=== PATIENT | female | born 1985 | race Caucasian/White ===

== ENCOUNTER 2016-09-17 06:28 | Inpatient (IN) ==
--- NOTE | 2016-09-17 07:40 | History and Physical Update ---
History and Physical Update - History and Physical H&P was reviewed, the patient examined and there: are no changes in the patients condition since last H&P was completed. - Dictation Physical: refer to scanned H&P - Physical Exam Mental Status: alert and oriented Heart: regular rate and rhythm Lung: clear to auscultation Abdomen: within normal limits Vitals: within normal limits History and Physical Changes: 39 wks Para 1. No complications.
[2016-09-17] MEDS ORDERED: LACTATED RINGERS 500 ML IV PRN (08:01)
[2016-09-17] MEDS ORDERED: CITRIC ACID/SODIUM CITRATE 30 ML UDCUP PO ONE (08:01)
[2016-09-17] MEDS ORDERED: PROMETHAZINE 25 MG/1 ML VIAL IM ONE (08:01)
[2016-09-17] MEDS ORDERED: FAMOTIDINE 20 MG/2 ML VIAL IV ONE (08:01)
[2016-09-17] MEDS ORDERED: fentaNYL 2 MCG/ROPIV 0.2% EPID 150 ML EPIDURAL SCH (08:01)
[2016-09-17] MEDS ORDERED: ONDANSETRON 4 MG/2 ML VIAL IV PRN ×2 (08:01→15:55)
[2016-09-17] MEDS ORDERED: hydrOXYzine HCL 25 MG/1 ML VIAL IM PRN (08:01)
[2016-09-17] MEDS ORDERED: ONDANSETRON 4 MG/2 ML VIAL IV ONE (08:01)
[2016-09-17] MEDS ORDERED: LACTATED RINGERS 1,000 ML IV ONE (08:01)
[2016-09-17] MEDS ORDERED: ePHEDrine 50 MG/ML AMP IV PRN (08:01)
[2016-09-17] MEDS ORDERED: OXYTOCIN/LR 20 UNIT/1,000 ML BAG IV SCH (08:30)
[2016-09-17] MEDS ORDERED: LACTATED RINGERS 1,000 ML IV SCH ×2 (08:30)
[2016-09-17 08:33] LABS: Basophils % 0.3 % (0.0-0.8); Eosinophils # 0.1 10*3/uL (0.0-0.87); Eosinophils % 0.7 % (0.00-10.9); Hematocrit 34.2 VOL% (35.7-47.0); Hemoglobin 11.9 GM/DL (12.0-16.0); Immature Granulocytes % 1.5 %; Immature Granulocytes Absolute 0.17 #; Lymphocytes # 2.1 10*3/uL (1.4-4.0); Mean Corpuscular HGB Conc 34.8 GM/DL (32-36); Mean Corpuscular Hemoglobin 31 PG (27-34); Mean Corpuscular Volume 89.5 FL (87-102); Mean Platelet Volume 10.7 FL (9.6-12.0); Monocytes # 0.9 10*3/uL (0.11-0.8); Monocytes % 8.1 % (1.7-12.7); Neutrophils # 7.9 10*3/uL (1.4-7.4); Neutrophils % 70.4 % (38.7-73.9); Platelet Count 238 T/CUMM (130-400); Red Blood Count 3.82 MC/CUMM (3.8-5.5); Red Cell Distribution Width 13.9 % (9.3-17.3); White Blood Count 11.2 T/CUMM (4-12)
[2016-09-17 08:48] LABS: PT Patient Result 10.7 SECS; Partial Thromboplastin Time 27.3 SECS (0-40)
[2016-09-17] MEDS ORDERED: miSOPROStol 200 MCG TABLET ONE (08:49)
[2016-09-17 09:21] LABS: Alanine Aminotransferase 20 U/L (13-56); Albumin 2.6 G/DL (3.4-5.0); Alkaline Phosphatase 186 U/L (45-117); Aspartate Amino Transferase 16 U/L (0-37); Bilirubin,Total < 0.39 MG/DL (0.2-1.0); Blood Urea Nitrogen 7 MG/DL (7-18); Calcium 8.6 MG/DL (8.5-10.1); Glucose 76 MG/DL (74-106); Osmolality,Calculated 275.4 MOS/KG (273-304); Sodium 140 MMOL/L (136-145); Total Protein 5.5 G/DL (6.4-8.3)
[2016-09-17 10:32] LABS: Apearance,Urine CLEAR (Clear); Bilirubin,Urine Negative (Negative); Blood, Urine Negative (Negative); Glucose,Urine (UA) Negative (Negative); Ketones,Urine Negative (Negative); Nitrite,Urine Negative (Negative); Protein,Urine Negative; RBC,Urine <1 /HPF (0-4); Urine Color Colorless (Yellow); Urine Specific Gravity 1.003 (1.001-1.035); Urine Urobilinogen < 2.0 EU/DL (0.2-1.0)
[2016-09-17] MEDS: diphenhydrAMINE 50 MG/1 ML VIAL IV PRN ×2 (11:56→15:51)
[2016-09-17] MEDS ORDERED: OXYTOCIN/LR 20 UNIT/1,000 ML BAG IV ONE (15:55)
[2016-09-17] MEDS ORDERED: LANOLIN 50% CREAM 0.3 OZ TUBE TOP PRN (15:55)
[2016-09-17] MEDS ORDERED: ACETAMINOPHEN 325 MG TABLET PO PRN (15:55)
[2016-09-17] MEDS ORDERED: DIPH/TET/ACEL PERT BOOSTER VACCINE 0.5 ML VIAL IM ONE (15:55)
[2016-09-17] MEDS ORDERED: HYDROCORTISONE 2.5% RECTAL CREAM 30 GM TUBE TOP PRN (15:55)
[2016-09-17] MEDS ORDERED: RHO(D) IMMUNE GLOBULIN 300 MCG SYRINGE IM ONE (15:55)
[2016-09-17] MEDS ORDERED: oxyCODONE/ACETAMINOPHEN 5-325 MG TABLET PO PRN (15:55)
[2016-09-17] MEDS ORDERED: BENZOCAINE 20%/MENTHOL 0.5% SPRAY 56 GM CAN TOP PRN (15:55)
[2016-09-17] MEDS ORDERED: WITCH HAZEL PADS 100/JAR TOP PRN (15:55)
[2016-09-17] MEDS ORDERED: MEASLES/MUMPS/RUBELLA VACCINE 0.5 ML VIAL SUBCUT ONE (15:55)
[2016-09-17] MEDS ORDERED: BISACODYL 10 MG SUPP RECTAL PRN (15:55)
[2016-09-17] MEDS: IBUPROFEN 800 MG TABLET PO PRN ×2 (16:49→22:56)
[2016-09-17] MEDS: oxyCODONE/ACETAMINOPHEN 5-325 MG TABLET PO PRN ×2 (16:52→22:56)
[2016-09-17] MEDS: DOCUSATE SODIUM 100 MG CAPSULE PO SCH (21:30)
[2016-09-18] MEDS: IBUPROFEN 800 MG TABLET PO PRN ×3 (06:13→21:11)
[2016-09-18] MEDS: oxyCODONE/ACETAMINOPHEN 5-325 MG TABLET PO PRN ×2 (06:14→21:13)
[2016-09-18 06:38] LABS: Basophils # 0.1 10*3/uL (0.0-0.2); Basophils % 0.3 % (0.0-0.8); Eosinophils # 0.1 10*3/uL (0.0-0.87); Hematocrit 35.7 VOL% (35.7-47.0); Hemoglobin 11.9 GM/DL (12.0-16.0); Immature Granulocytes % 0.9 %; Immature Granulocytes Absolute 0.13 #; Lymphocytes # 3.2 10*3/uL (1.4-4.0); Lymphocytes % 22.1 % (21.3-54.2); Mean Corpuscular HGB Conc 33.3 GM/DL (32-36); Mean Corpuscular Hemoglobin 30 PG (27-34); Mean Corpuscular Volume 90.8 FL (87-102); Mean Platelet Volume 10.9 FL (9.6-12.0); Monocytes # 1.1 10*3/uL (0.11-0.8); Monocytes % 7.6 % (1.7-12.7); Neutrophils # 9.7 10*3/uL (1.4-7.4); Neutrophils % 68.1 % (38.7-73.9); Platelet Count 223 T/CUMM (130-400); Red Blood Count 3.93 MC/CUMM (3.8-5.5); White Blood Count 14.3 T/CUMM (4-12)
[2016-09-18] MEDS: DOCUSATE SODIUM 100 MG CAPSULE PO SCH ×2 (08:25→21:11)
--- NOTE | 2016-09-18 13:21 | Anesthesia Post-Op ---
Anesthesia Post OP - Post Ansesthetic Evaluation Patient seen in post op: Yes Resp: within normal limits CV: within normal limits Mental: within normal limits Temp: within normal limits [id number]: within normal limits Nausea and Vomiting: within normal limits Pain: within normal limits
[2016-09-19] MEDS: IBUPROFEN 800 MG TABLET PO PRN (04:53)
[2016-09-19 07:22] VITALS: BP 114/68
--- NOTE | 2016-09-19 08:43 | Operative Note ---
Date of procedure: 09/17/16 Pre-op diagnosis: 39 weeks for induction Post-op diagnosis: same Procedure: Delivery note. Patient progressed to complete and pushing with labor epidural and Pitocin augmentation and delivered a viable female over 2nd degree MLE. Baby was bulb suctioned on the perineum. Cord was doubly clamped and cut. Cord blood was collected and placenta was delivered intact. MLE was repaired with 2-0 and 3-0 chromic. Fundus is firm. Estimated blood loss 300 mL. Complications none. Patient is stable and the baby is stable. Anesthesia: epidural Surgeon / Physician: Alida Cool Estimated blood loss: other (300cc) Specimens: other (placenta to path; cord blood to lab) Condition: stable Disposition: no change Results - Labs CBC & BMP: 09/18/16 06:18 09/17/16 08:27 Discharge Plan - Discharge Medications No Action Pnv No.95/Ferrous Fum/Folic AC [ Tablet] 1 each PO DAILY Omeprazole Magnesium [Prilosec Otc] 20 mg PO DAILY - Follow Up or Referral - Forms/Instructions Instructions: Perineal Care (DC), Vaginal Delivery (DC), Bleeding (DC)
--- NOTE | 2016-09-19 08:45 | OB/GYN Progress Note ---
Assessment and Plan (1) Vaginal delivery Status: Acute Assessment and plan: Routine care Current Visit: Yes DIRECTOR OF USER EXPERIENCE - PN: Subj Interval history: 09/18/16: PPD#1 Doing well without complaints. Exam DIRECTOR OF USER EXPERIENCE - Constitutional Vitals: Vital Signs Temp Pulse Resp BP Pulse Ox 09/19/16 07:21 97.9 F 57 L 18 114/68 100 09/19/16 04:00 18 09/19/16 02:00 18 09/19/16 00:00 98.0 F 86 18 107/68 98 09/18/16 20:00 97.7 F 65 20 111/73 98 09/18/16 15:19 97 F L 66 20 115/75 98 09/18/16 11:24 97.8 F 74 20 105/62 98 General appearance: normal weight, no acute distress - Head Head exam: Present: normal inspection, normocephalic - Eye Eye exam: Present: EOMI - Respiratory Respiratory exam: Present: clear to auscultation bilaterally - Cardiovascular Cardiovascular exam: Present: regular rate and rhythm - GI/Abdominal GI/Abdominal exam: Present: soft - Neurological Exam Neurological exam: Present: alert, oriented X3 - Psychiatric Psychiatric exam: Present: normal affect, normal mood - Skin Skin exam: Present: normal color, warm Results - Labs CBC & BMP: 09/18/16 06:18 09/17/16 08:27 Lab Results: I have reviewed the past 24 hour labs
--- NOTE | 2016-09-19 08:48 | Discharge Summary ---
Hospital Course - Hospital Course Hospital Course: Pt admitted for induction. She delivered without complication. Her course has been unremarkable. Diagnosis - Discharge Diagnosis (1) Vaginal delivery Status: Acute Specialty Discharge - Follow Up or Referrals Discharge Plan - Discharge Data Disposition: Disch To Home/Self Care Condition at Discharge: Stable Discharge Diet: regular diet Activity: other (pelvic rest x 6 wks) Hygiene: may shower Weight Bearing at Discharge: full weight bearing Driving: not for (1 week) Contact your physician if you experience:: fever over 101, Difficulty voiding, Redness or swelling, Nausea/Vomiting, Shortness of breath, Bleeding, pain uncontrolled by pain medications - Discharge Medications New Ibuprofen Tab [Motrin Tab] 800 mg PO Q6H PRN #30 tablet PRN Reason: Pain Moderate (4-7) oxyCODONE/ACETAMINOPHEN 5-325 [Percocet 5-325] 1 tablet PO Q6H PRN #20 tablet PRN Reason: Pain Severe (8-10) No Action Pnv No.95/Ferrous Fum/Folic AC [ Tablet] 1 each PO DAILY Omeprazole Magnesium [Prilosec Otc] 20 mg PO DAILY - Follow Up or Referral Follow Up: Alida Cool DO [Physician] - (6 wks) - Forms/Instructions Instructions: Perineal Care (DC), Vaginal Delivery (DC), Bleeding (DC) Exam - Constitutional Vitals: Period Temp Pulse Resp BP Sys/Navarrete Pulse Ox Last 24 Hr 97 F-98.0 F 57-86 18-20 105-115/62-75 98-100 General appearance: normal weight, no acute distress - Head Head exam: Present: normal inspection, normocephalic - Eye Eye exam: Present: EOMI - Respiratory Respiratory exam: Present: clear to auscultation bilaterally - Cardiovascular Cardiovascular exam: Present: regular rate and rhythm - GI/Abdominal GI/Abdominal exam: Present: soft (fundus firm, nontender) - Extremities Exam Extremities exam: Present: normal inspection - Neurological Exam Neurological exam: Present: alert, oriented X3 - Psychiatric Psychiatric exam: Present: normal affect, normal mood - Skin Skin exam: Present: normal color, warm DS: Provider Date of admission: 09/17/16 08:01 Primary care physician: . No PCP Attending physician on admission: Alida Cool DO Consults: 09/17/16 08:01 Consult to Anesthesiology [CONS] Routine Consulting Provider: Reason for Anesthesiology: Epidural Consult Comment: Epidural for pain managment 09/17/16 15:56 Consult to Labelling Machine Operator [CONS] Routine Consult Labelling Machine Operator: Breast Feeding Discharging clinician: Alida Cool DO Expected date of discharge: 09/19/16
[2016-09-19] MEDS: DOCUSATE SODIUM 100 MG CAPSULE PO SCH (09:00)
--- NOTE | 2016-09-19 12:20 | Pathology Report from [facility] ---
[facility] ACCESSION # : [id number] PATIENT NAME : Alida Harding ORDERING DR : ALIDA AGUILAR DO CLINICAL HX: IUPC @ 39 wks 2 days POST-OP DX: Same SPECIMEN INFO: Intact placenta GROSS DESCRIPTION: Received fresh labeled ALIDA HARDING & PLACENTA is a 426 gm placenta measuring 19.0 x 16.5 x 2.3 cm. The membranes are pink gibbons and translucent. The umbilical cord measures 23.0 cm, contains three vessels and is centrally inserted. The surface is blue otero and intact. The maternal surface displays intact cotyledons with no abnormalities appreciated upon sectioning. Sections submitted A- membranes and cord, B- and maternal surfaces. DIAGNOSIS FOR ALIDA HARDING: PLACENTA, MEMBRANES, UMBILICAL CORD: Focal placental infarction with dystrophic calcification, mild intervillous blood. Tri -vessel umbilical cord. Membranes with focal acute and chronic inflammation and attached blood. COLLECTED DATE: 09/18/2016 [facility] REPORT DATE: 09/19/2016 ELECTRONICALLY SIGNED BY: Tammy Cheng M.D. 09/19/2016 - 10:28:02 MARYANNE
== END 2016-09-19 12:25 | disposition home or self-care (01) | DRG 775 ==
LOC: N.LDOUT 06:28 → N.LD 06:33 → N.OB 16:47
PROVIDERS: ADMIT Obstetrics & Gynecology; ATTEND Obstetrics & Gynecology